=== PATIENT | female | born 2005 | race Two or more races ===

== ENCOUNTER 2025-05-04 09:20 | Outpatient (AMB) | payer MEDICAID, SELFPAY ==
[2025-05-04 09:38] VITALS: BP 118/72; PULSE 71; RESP 18; TEMP 36.8; O2SAT 98; BMI 35.2
--- NOTE | 2025-05-04 09:39 | OBCLNT_ITS ---
Vital Signs 05/04/25 09:38 05/04/25 09:43 Height 1.6 m Height Method Stated Weight 90.066 kg Weight Measurement Method Standing Scale BMI 35.2 BP 118/72 118/72 Blood Pressure Source Automatic Cuff Blood Pressure Location Right Upper Arm Position Sitting Respiration 18 18 Pulse 71 71 Pulse Source Monitor Temp 98.2 F 98.2 F Temp Source Temporal Artery Scan Pulse Oximetry (%) 98 98 Oxygen Delivery Method Room Air Allergies/Home Meds Allergies & Medications Allergies No Known Allergies Allergy (Verified 03/01/18 18:32) Intake Visit Data Collection New Patient or Established: Established Patient (seen at [facility] within 3 years) Reason for Visit:: OBI TRANSFER Do You Feel Safe at Home: Yes Authorities Contacted: N/A PCP or OBGYN visit in last 3 months: Yes Hx Now: Yes Are you currently on any form of Control: No Last menstrual period: 12/14/24 Pain Present Currently: No Smoking Status Smoking Status: Never smoker Questionnaires Social History Tobacco History Smoking Status: Never smoker Domestic Abuse History Do You Feel Safe at Home: Yes History of Present Illness HPI Narrative 19-year-old 2 para 0 SAB 1 for OBI. Patient is a transfer from [facility] with records. Her last period December 14, 2024. Her EDC September 19, 2025. She reports that she has her dates and she tracks them. Patient denies any pre- existing medical conditions. She denies allergies. She was diagnosed with chlamydia this . Both her and her partner were treated with Zithromax. They have not had a test of cure yet. Patient reports to drinking beer socially. Other than that no social habits. Denies any SAB complaints such as spotting or bleeding. No cramps. Both patient and partner are happy about the . OB Initial Visit OB Flowsheet OB Flowsheet Initial Weight: Not Recorded Date -?-?-?-?-?-?-?-?-?-?-?-?- EGA Weight BP Alb Glu CTX Pres Fundal ht FHR Mov Dilation Station Effacement Hx Notes Visit Note 05/04/25 -?-?-?-?-?-?-?-?-?-?-?-?- 20w 1d 90.066 kg 118/72 118/72 absent unknown 20 145 active 19-year-old 2 para 0 for OBI. Patient is a transfer from [facility] with records. She denies social habits, denies surgery. Denies chronic illness. Last period was December 14, 2024. Estimated due date September 19, 2025. Patient has sure dates, she tracks them. Denies any signs or symptoms of bleeding. And she was started on prenatals. Patient has a history of positive chlamydia with this and she reports that both her and her partner were treated at their visit on March 26. AFP,NIPT,SMA today, schedule with MFM for anatomy scan, Nuswab for + CT ARNEL, discuss safe sex, discuss ptl precaution, continue PNV. rtc 4 week Menstrual History Menstrual reliability: definite Flow: normal Menstrual regularity: regular Monthly: Yes On control pills at conception: No OB History : 1 Para: 0 Hx # Pregnancies: 0 Hx Total # of Abortions (Spontaneous & Elective): 0 Infection History & Risk Evaluation History of STDs: none Genetic Screening & History Genetic Screening/Teratology Counseling - Includes patient, baby's father, or anyone in either family with: 1. Patient's age 35 years or older as of estimated date of delivery: No 2. Thalassemia (Armenian, Luxembourgish, Mediterranean, or Background); MCV less than 80: No 3. Neural Tube Defect (Meningomyelocele, Spina Bifida, or Anencephaly): No 4. Congenital Heart Defect: No 5. Down Syndrome: No 6. Moo-Sachs (Ashkenazi Cheondoism, Cajun, Kyrgyz Martiniquais): No 7. Chapis Disease (Ashkenazi Cheondoism): No 8. Familial Dysautonomia (Ashkenazi Cheondoism): No 9. Sickle Cell Disease or Trait (): No 10. Hemophilia or other blood disorders: No 11. Muscular Dystrophy: No 12. Cystic Fibrosis: No 13. [place]'s Chorea: No 14. Mental Retardation/Autism: No 15. Other inherited genetic or chromosomal disorder: No 16. Maternal Metabolic Disorder (EG,TYPE 1 Diabetes, PKU): No 17. Patient or baby's father had a child with defects not listed above: No 18. Recurrent loss or a stillbirth: No 19. Medications (including supplements, vitamins, herbs or otc drugs)/illicit/recreational drugs/alcohol since last menstrual period: No 20. Any other: No Infection History 1. Live with someone with TB or exposed to TB: No 2. Rash or viral illness since last menstrual period: No 3. Hepatitis B,C: No Other (see comments) Source: [employer] Review of Systems Review of Systems Systems Reviewed: All systems reviewed, normal except as documented Exam General Limitations: no limitations General Appearance: alert, in no apparent distress, comfortable, cooperative, healthy appearing, well developed and well groomed Head Head exam: atraumatic, normocephalic and normal inspection Chest Chest inspection: Present normal inspection and symmetric chest wall rise Resp Respiratory exam: Present normal lung sounds bilaterally Card Cardiovascular exam: Present regular rate, normal rhythm and normal heart sounds Abdominal Abdominal exam: Present soft and normal bowel sounds Skin Skin exam: Present warm, dry, intact and normal color Office Procedures OBC Clinic LOC & Office Proc's Nursing/Assessment Miscellaneous Interventions: Pelvic Comp w/OB cult Assessment & Plan Diagnosis / Problem List (1) Encounter for supervision of high risk in second trimester, antepartum: Status: Acute (2) Chlamydia: Status: Acute Plan NuSwab plus for chlamydia test of cure. Scheduled for M ultrasound. NIPT, AFP and spinal muscular atrophy screens today. Continue prenatals. Discussed precautions. Increase fluids. Return in 4 weeks OB to Additional Plan Follow Up: 4 Weeks (obc)
[2025-05-04 09:43] VITALS: BP 118/72; PULSE 71; RESP 18; TEMP 36.8; O2SAT 98
== END 2025-05-04 10:04 | disposition home or self-care (01) ==
LOC: HODSOBC 09:20
PROVIDERS: Supervising Provider Advanced Practice Midwife; Visit Provider Advanced Practice Midwife
DX: O09.892 Supervision of other high risk pregnancies, second trimester (principal); O98.312 Other infections with a predominantly sexual mode of transmission complicating pregnancy, second trimester; A56.8 Sexually transmitted chlamydial infection of other sites; Z3A.20 20 weeks gestation of pregnancy
CPT/HCPCS: 99204; G0463

== ENCOUNTER 2025-06-10 08:39 | Outpatient (AMB) | payer MEDICAID, SELFPAY ==
[2025-06-10 08:45] VITALS: BP 109/72; PULSE 87; RESP 18; TEMP 36.6; O2SAT 97; BMI 36.5
--- NOTE | 2025-06-10 08:45 | OBCLNT_ITS ---
Vital Signs 06/10/25 08:45 Height 1.6 m Height Method Stated Weight 93.61 kg Weight Measurement Method Standing Scale BMI 36.5 BP 109/72 Blood Pressure Source Automatic Cuff Blood Pressure Location Right Upper Arm Position Sitting Respiration 18 Pulse 87 Pulse Source Monitor Temp 97.8 F Temp Source Temporal Artery Scan Pulse Oximetry (%) 97 Oxygen Delivery Method Room Air Allergies/Home Meds Allergies & Medications Allergies No Known Allergies Allergy (Verified 06/10/25 08:47) Intake Visit Data Collection New Patient or Established: Established Patient (seen at [facility] within 3 years) Reason for Visit:: OBC Seen by Clinical Staff ONLY (RN/MA): No Barrelhead Inspector Required: No Do You Feel Safe at Home: Yes Authorities Contacted: N/A PCP or OBGYN visit in last 3 months: Yes Date of Last PCP or OBGYN visit: 05/04/25 Hx Now: Yes Are you currently on any form of Control: No Pain Present Currently: No Pain Scale Used: Abraham-Bell/Numerical Pain scale:: 0 Smoking Status Smoking Status: Never smoker Immunizations Flu Vaccine in the Last 12 Months: No Flu Vaccine Exclusion Criteria: No Exclusion Criteria Questionnaires Covid-19 Vaccine Questionnaire Has patient been vacinated for Covid-19 Have you been vacinated for Covid-19: No PHQ-9 PHQ-2 Over the last 2 weeks, how often have you been bothered by any of the following problems? 1. Little interest or pleasure in doing things: not at all 2. Feeling down, depressed, or hopeless: not at all Total score: 0 PHQ-9 3. Trouble falling or staying asleep, or sleeping too much: Not at all 4. Feeling tired or having little energy: Not at all 5. Poor appetite or overeating: Not at all 6. Feeling bad about yourself - or that you are a failure or have let yourself or your family down: Not at all 7. Trouble concentrating on things, such as reading the newspaper or watching television: Not at all 8. Moving or speaking so slowly that other people could have noticed? - Or the opposite - being so fidgety or restless that you have been moving around a lot more than usual: not at all 9. Thoughts that you would be better off or of hurting yourself in some way: Not at all Total score: 0 If you checked off any problems, how difficult have these problems made it for you to do your work, take care of things at home, or get along with other people?: not difficult at all Source: Developed by Drs. Mehrdad Dockery, Krupa Saez, Jose Holloway and colleagues, with an educational abundio from [employer]. Depression screen completed yes Social History Living Situation History Marital Status: Single Lives With: Family Housing: House Tobacco History Smoking Status: Never smoker Second Hand Smoke Exposure: Yes Alcohol History Alcohol Intake: Never Domestic Abuse History Do You Feel Safe at Home: Yes Care OB Visit Log OB Flowsheet Initial Weight: Not Recorded Date -?-?-?-?-?-?-?-?-?-?-?-?- EGA Weight BP Alb Glu CTX Pres Fundal ht FHR Mov Dilation Station Effacement Hx Notes Visit Note 05/04/25 -?-?-?-?-?-?-?-?-?-?-?-?- 20w 1d 90.066 kg 118/72 118/72 absent unknown 20 145 active 19-year-old 2 para 0 for OBI. Patient is a transfer from [facility] with records. She denies social habits, denies surgery. Denies chronic illness. Last period was December 14, 2024. Estimated due date September 19, 2025. Patient has sure dates, she tracks them. Denies any signs or symptoms of bleeding. And she was started on prenatals. Patient has a history of positive chlamydia with this and she reports that both her and her partner were treated at their visit on March 26. AFP,NIPT,SMA today, schedule with MFM for anatomy scan, Nuswab for + CT ARNEL, discuss safe sex, discuss ptl precaution, continue PNV. rtc 4 week 06/10/25 -?-?-?-?-?-?-?-?-?-?-?-?- 25w 3d 93.61 kg 109/72 absent unknown 25 145 active No OB complaints. Reports movement. Denies leaking, bleeding, contractions. Patient would like a note for work because at [employer] she is being asked to use equipment that is not to be used by women. And that is per her company policy Note for work. Avoid being placed in operational PIP. Third trimester labs. Reschedule anatomy scan at at [facility]. And increase fluids continue prenatals discussed diet and weight and return in 4 weeks at which GERI Calculator Estimated Delivery Date Method Current WG Current Estimate 09/20/25 LMP (Certain) 25w 3d Notes Visit Date: 05/04/25 Last Updated by: Ayse Pierre CNM 03/26 ob panel: CT+/GC-, HBSAG-,HC-,HIV-, RPR::NR, rub imm, UT-, UA-, O+,ABS-, Office Procedures OBC Clinic LOC & Office Proc's Nursing/Assessment Patient Status: Established Patient OB Clinic Nursing Assessment: Medication Reconciliation, Update PMH in EMR and Vital Signs OB Clinic Coordination of Care: Complex Care and Chronic Disease 1-5, Education Complex Pt/Fam, Consent,records obtained, informed consent, Results/Orders obtained and Staff clarify orders Special Needs: Heart tones Established Patient Charge Established Patient Point Assignment: 125 Established Patient Point Charge: EP Level 4 (120-155) Assessment & Plan Diagnosis / Problem List (1) Encounter for supervision of high risk in second trimester, antepartum: Status: Acute Plan Note for work related machine use. Patient is to avoid being scheduled in the operational.. Schedule anatomy scan at [facility]. Third trimester labs with A1c today. Discussed labor precautions. I discussed diet and weight gain. Return in 4 weeks OB check Additional Plan Follow Up: 4 Weeks (obc)
== END 2025-06-10 09:54 | disposition home or self-care (01) ==
PROVIDERS: Supervising Provider Advanced Practice Midwife; Visit Provider Advanced Practice Midwife
DX: O09.92 Supervision of high risk pregnancy, unspecified, second trimester (principal); Z3A.25 25 weeks gestation of pregnancy
CPT/HCPCS: 99214; G0463

== ENCOUNTER 2025-07-07 09:12 | Outpatient (AMB) | payer MEDICAID, SELFPAY ==
[2025-07-07 09:40] VITALS: BP 121/77; PULSE 75; RESP 18; TEMP 36.5; O2SAT 97; BMI 37.2
--- NOTE | 2025-07-07 09:40 | OBCLNT_ITS ---
Vital Signs 07/07/25 09:40 Height 1.6 m Height Method Stated Weight 95.254 kg Weight Measurement Method Standing Scale BMI 37.2 BP 121/77 Blood Pressure Source Automatic Cuff Blood Pressure Location Right Upper Arm Position Standing Respiration 18 Pulse 75 Pulse Source Monitor Temp 97.7 F Temp Source Temporal Artery Scan Pulse Oximetry (%) 97 Oxygen Delivery Method Room Air Allergies/Home Meds Allergies & Medications Allergies No Known Allergies Allergy (Verified 07/07/25 09:42) Medication Reconciliation No Known Home Medications 07/07/25 [History Confirmed 07/07/25] Immunizations Immunizations Flu Vaccine in the Last 12 Months: No Flu Vaccine Exclusion Criteria: No Exclusion Criteria Care OB Visit Log OB Flowsheet Initial Weight: Not Recorded Date -?-?-?-?-?-?-?-?-?-?-?-?- EGA Weight BP Alb Glu CTX Pres Fundal ht FHR Mov Dilation Station Effacement Hx Notes Visit Note 05/04/25 -?-?-?-?-?-?-?-?-?-?-?-?- 22w 1d 90.066 kg 118/72 118/72 absent unknown 20 145 active 19-year-old 2 para 0 for OBI. Patient is a transfer from [facility] with records. She denies social habits, denies surgery. Denies chronic illness. Last period was December 14, 2024. Estimated due date September 19, 2025. Patient has sure dates, she tracks them. Denies any signs or symptoms of bleeding. And she was started on prenatals. Patient has a history of positive chlamydia with this and she reports that both her and her partner were treated at their visit on March 26. AFP,NIPT,SMA today, schedule with MFM for anatomy scan, Nuswab for + CT ARNEL, discuss safe sex, discuss ptl precaution, continue PNV. rtc 4 week 06/10/25 -?-?-?-?-?-?-?-?-?-?-?-?- 27w 3d 93.61 kg 109/72 absent unknown 25 145 active No OB complaints. Reports movement. Denies leaking, bleeding, contractions. Patient would like a note for work because at [employer] she is being asked to use equipment that is not to be used by women. And that is per her company policy Note for work. Avoid being placed in operational PIP. Third trimester labs. Reschedule anatomy scan at at [facility]. And increase fluids continue prenatals discussed diet and weight and return in 4 weeks at which 07/07/25 -?-?-?-?-?-?-?-?-?-?-?-?- 31w 2d 95.254 kg 121/77 absent cephalic 31 145 active Patient would like to start disability. 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 Denies leaking, bleeding, contractions. Reports good movement. Patient did not do third trimester labs. And she has a follow-up ultrasound with maternal- medicine September 06. Follow-up with [facility]- [facility] September 06. Start disability today. Discussed labor precautions. Third trimester labs today with GC and chlamydia as test of cure failure. Discussed safe sex. labor precautions increase fluids. Return 2 weeks OB GERI Calculator Estimated Delivery Date Method Current WG Current Estimate 09/06/25 Ultrasound #1 31w 2d Other Estimates 09/20/25 LMP (Certain) 29w 2d Notes Visit Date: 07/07/25 Last Updated by: Ayse Pierre CNM sono 06/10: IUP 27w3. EDC: 09/06/25. poor dates Visit Date: 05/04/25 Last Updated by: Ayse Pierre CNM 03/26 ob panel: CT+/GC-, HBSAG-,HC-,HIV-, RPR::NR, rub imm, UT-, UA-, O+,ABS-, / Office Procedures OBC Clinic LOC & Office Proc's Nursing/Assessment Patient Status: Established Patient OB Clinic Nursing Assessment: Medication Reconciliation, Update PMH in EMR and Vital Signs OB Clinic Coordination of Care: Complex Care and Chronic Disease 1-5, Education Complex Pt/Fam, Consent,records obtained, informed consent, Education Simp Pt/Fam, Lab and Imaging orders, Results/Orders obtained and Staff clarify orders Special Needs: Heart tones Established Patient Charge Established Patient Point Assignment: 155 Established Patient Point Charge: EP Level 4 (120-155) Assessment & Plan Diagnosis / Problem List (1) Encounter for supervision of high risk in second trimester, antepartum: Status: Acute Plan Wrong dates. Patient has follow-up maternal- medicine ultrasound September 06. Discussed labor precautions. Third trimester labs with A1c and GC and chlamydia. Discussed safe sex. labor precautions reviewed. Start disability today. Return in 2 weeks OB check Additional Plan Follow Up: 2 Weeks (obc)
== END 2025-07-07 10:13 | disposition home or self-care (01) ==
LOC: HODSOBC 09:12
PROVIDERS: Supervising Provider Advanced Practice Midwife; Visit Provider Advanced Practice Midwife
DX: O09.893 Supervision of other high risk pregnancies, third trimester (principal); O26.843 Uterine size-date discrepancy, third trimester; Z3A.31 31 weeks gestation of pregnancy
CPT/HCPCS: 99214; G0463

== ENCOUNTER 2025-07-21 10:57 | Outpatient (AMB) | payer MEDICAID, SELFPAY ==
[2025-07-21 11:21] VITALS: BP 127/84; PULSE 92; RESP 18; TEMP 36.5; O2SAT 98; BMI 37.4
--- NOTE | 2025-07-21 11:21 | OBCLNT_ITS ---
Vital Signs 07/21/25 11:21 Height 1.6 m Height Method Stated Weight 95.765 kg Weight Measurement Method Standing Scale BMI 37.4 BP 127/84 Blood Pressure Source Automatic Cuff Blood Pressure Location Left Upper Arm Position Sitting Respiration 18 Pulse 92 Pulse Source Monitor Temp 97.7 F Temp Source Oral Pulse Oximetry (%) 98 Oxygen Delivery Method Room Air Allergies/Home Meds Allergies & Medications Allergies No Known Allergies Allergy (Verified 07/21/25 11:22) Medication Reconciliation ferrous sulfate 325 mg (65 mg iron) tablet 325 mg PO BID #60 tabs 07/21/25 [Rx] vitamins-iron fumarate 66 mg iron-folic acid 1 mg tablet tab PO 07/21/25 [History Confirmed 07/21/25] Immunizations Immunizations Flu Vaccine in the Last 12 Months: No Flu Vaccine Exclusion Criteria: Refused by Patient Care OB Visit Log OB Flowsheet Initial Weight: Not Recorded Date -?-?-?-?-?-?-?-?-?-?-?-?- EGA Weight BP Alb Glu CTX Pres Fundal ht FHR Mov Dilation Station Effacement Hx Notes Visit Note 05/04/25 -?-?-?-?-?-?-?-?-?-?-?-?- 22w 1d 90.066 kg 118/72 118/72 absent unknown 20 145 active 19-year-old 2 para 0 for OBI. Patient is a transfer from [facility] with records. She denies social habits, denies surgery. Denies chronic illness. Last period was December 14, 2024. Estimated due date September 19, 2025. Patient has sure dates, she tracks them. Denies any signs or symptoms of bleeding. And she was started on prenatals. Patient has a history of positive chlamydia with this and she reports that both her and her partner were treated at their visit on March 26. AFP,NIPT,SMA today, schedule with MFM for anatomy scan, Nuswab for + CT ARNEL, discuss safe sex, discuss ptl precaution, continue PNV. rtc 4 week 06/10/25 -?-?-?-?-?-?-?-?-?-?-?-?- 27w 3d 93.61 kg 109/72 absent unknown 25 145 active No OB complaints. Reports movement. Denies leaking, bleeding, contractions. Patient would like a note for work because at [employer] she is being asked to use equipment that is not to be used by women. And that is per her company policy Note for work. Avoid being placed in operational PIP. Third trimester labs. Reschedule anatomy scan at at [facility]. And increase fluids continue prenatals discussed diet and weight and return in 4 weeks at which 07/07/25 -?-?-?-?-?-?-?-?-?-?-?-?- 31w 2d 95.254 kg 121/77 absent cephalic 31 145 active Patient would like to start disability. 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 Denies leaking, bleeding, contractions. Reports good movement. Patient did not do third trimester labs. And she has a follow-up ultrasound with maternal- medicine September 06. [facility] Start disability today. Discussed labor precautions. Third trimester labs today with GC and chlamydia as test of cure failure. Discussed safe sex. labor precautions increase fluids. Return 2 weeks OB 07/21/25 -?-?-?-?-?-?-?-?-?-?-?-?- 33w 2d 95.765 kg 127/84 absent cephalic 33 140 active Maternal- medicine scheduled for August 17. Reports good movement. Denies leaking, bleeding, contractions Keep [facility] appointment. Discussed labor precautions. Kick count twice a day. Return in 2 weeks OB check. Discussed weight gain and increased exercise GERI Calculator Estimated Delivery Date Method Current WG Current Estimate 09/06/25 Ultrasound #1 33w 2d Other Estimates 09/20/25 LMP (Certain) 31w 2d Notes Visit Date: 07/21/25 Last Updated by: Ayse Pierre CNM 3rd tri lab: . RPR::NR, A1:5.4, 1hr gtt: 93 Visit Date: 07/07/25 Last Updated by: Ayse Pierre CNM sono 06/10: IUP 27w3. EDC: 09/06/25. poor dates Visit Date: 05/04/25 Last Updated by: Ayse Pierre CNM 03/26 ob panel: CT+/GC-, HBSAG-,HC-,HIV-, RPR::NR, rub imm, UT-, UA-, O+,ABS-, Office Procedures OBC Clinic LOC & Office Proc's Nursing/Assessment Patient Status: Established Patient OB Clinic Nursing Assessment: Medication Reconciliation, Update PMH in EMR and Vital Signs OB Clinic Coordination of Care: Complex Care and Chronic Disease 1-5, Consent,records obtained, informed consent, Education Simp Pt/Fam, 1 Ins Authorization, Lab and Imaging orders, Results/Orders obtained and Staff clarify orders Special Needs: Heart tones Established Patient Charge Established Patient Point Assignment: 150 Established Patient Point Charge: EP Level 4 (120-155) Assessment & Plan Diagnosis / Problem List (1) Encounter for supervision of high risk in third trimester, antepartum: Status: Acute Plan Discussed labor precautions. Kick count twice a day reviewed. Follow- up [facility] August 17. Discussed third trimester labs. Return in 2 weeks OB check, GBS nv Additional Plan Follow Up: 2 Weeks (obc)
== END 2025-07-21 11:33 | disposition home or self-care (01) ==
LOC: HODSOBC 10:57
PROVIDERS: Supervising Provider Advanced Practice Midwife; Visit Provider Advanced Practice Midwife
DX: O09.93 Supervision of high risk pregnancy, unspecified, third trimester (principal); Z3A.33 33 weeks gestation of pregnancy; Z28.21 Immunization not carried out because of patient refusal
CPT/HCPCS: 99214; G0463

== ENCOUNTER 2025-07-29 17:20 | Observation (INO) | payer MEDICAID, SELFPAY ==
[2025-07-29] VITALS (13 sets, daily range): BP systolic 124–128; BP diastolic 69–76; PULSE 85–123; RESP 18–99; TEMP 36.7; O2SAT 97–100; BMI 38.0
--- NOTE | 2025-07-29 18:00 | XR_ITS ---
Examination: Complete OB ultrasound greater than 14 weeks Date and time of exam: July 29, 2025, 1843 hours INDICATIONS: Patient states loss of mucous plug today Findings: Viable intrauterine single fetus with single amniotic sac presentation cephalic Cardiac motion 143 bpm Placenta fundal grade 2 Umbilical cord insertion 3 vessel seen Amniotic fluid index 8.4 cm spine maternal left Cervix 3.2 cm Ovaries obscured by bowel gas. Composite estimated gestational age based on BPD, head circumference, abdominal circumference, femur length is 34 weeks 0 days Estimated weight 2339 g. Survey of intracranial anatomy, spinal anatomy, abdominal anatomy, four-chamber heart performed with no abnormalities identified. Impression: Viable intrauterine gestation cephalic presentation presentation cephalic Estimated gestational age 34 weeks 0 days.
== END 2025-07-29 19:55 | disposition home or self-care (01) ==
PROVIDERS: Admitting Provider Obstetrics & Gynecology; Visit Provider Obstetrics & Gynecology
DX: Z34.03 Encounter for supervision of normal first pregnancy, third trimester (principal); Z3A.34 34 weeks gestation of pregnancy
CPT/HCPCS: 59025; 59899; 76805

== ENCOUNTER 2025-08-11 08:13 | Outpatient (AMB) | payer MEDICAID, SELFPAY ==
[2025-08-11 08:32] VITALS: BP 133/79; PULSE 99; RESP 17; TEMP 36.6; O2SAT 98; BMI 37.8
--- NOTE | 2025-08-11 08:32 | OBCLNT_ITS ---
Vital Signs 08/11/25 08:32 Height 1.6 m Height Method Stated Weight 96.842 kg Weight Measurement Method Standing Scale BMI 37.8 BP 133/79 H Blood Pressure Source Automatic Cuff Blood Pressure Location Right Upper Arm Position Sitting Respiration 17 Pulse 99 Pulse Source Monitor Temp 97.9 F Temp Source Temporal Artery Scan Pulse Oximetry (%) 98 Oxygen Delivery Method Room Air Allergies/Home Meds Allergies & Medications Allergies No Known Allergies Allergy (Verified 08/11/25 08:38) Medication Reconciliation vitamins-iron fumarate 66 mg iron-folic acid 1 mg tablet tab PO 06/05 [History Confirmed 08/11/25] Immunizations Immunizations Flu Vaccine in the Last 12 Months: No Flu Vaccine Exclusion Criteria: Refused by Patient Care OB Visit Log OB Flowsheet Initial Weight: Not Recorded Date -?-?-?-?-?-?-?-?-?-?-?-?- EGA Weight BP Alb Glu CTX Pres Fundal ht FHR Mov Dilation Station Effacement Hx Notes Visit Note 05/04/25 -?-?-?-?-?-?-?-?-?-?-?-?- 22w 1d 90.066 kg 118/72 118/72 absent unknown 20 145 active 19-year-old 2 para 0 for OBI. Patient is a transfer from [facility] with records. She denies social habits, denies surgery. Denies chronic illness. Last period was December 14, 2024. Estimated due date September 19, 2025. Patient has sure dates, she tracks them. Denies any signs or symptoms of bleeding. And she was started on prenatals. Patient has a history of positive chlamydia with this and she reports that both her and her partner were treated at their visit on March 26. AFP,NIPT,SMA today, schedule with MFM for anatomy scan, Nuswab for + CT ARNEL, discuss safe sex, discuss ptl precaution, continue PNV. rtc 4 week 06/10/25 -?-?-?-?-?-?-?-?-?-?-?-?- 27w 3d 93.61 kg 109/72 absent unknown 25 145 active No OB complaints. Reports movement. Denies leaking, bleeding, contractions. Patient would like a note for work because at [facility] she is being asked to use equipment that is not to be used by women. And that is per her company policy Note for work. Avoid being placed in operational PIP. Third trimester labs. Reschedule anatomy scan at at [facility]. And increase fluids continue prenatals discussed diet and weight and return in 4 weeks at which 07/07/25 -?-?-?-?-?-?-?-?-?-?-?-?- 31w 2d 95.254 kg 121/77 absent cephalic 31 145 active Patient would like to start disability. She stopped working June 11. 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 So disability will start today July 07, 2025. Denies leaking, bleeding, contractions. Reports good movement. Patient did not do third trimester labs. And she has a follow-up ultrasound with maternal- medicine September 06. [facility]. Start disability today. Discussed labor precautions. Third trimester labs today with GC and chlamydia as test of cure failure. Discussed safe sex. labor precautions increase fluids. Return 2 weeks OB 07/21/25 -?-?-?-?-?-?-?-?-?-?-?-?- 33w 2d 95.765 kg 127/84 absent cephalic 33 140 active Maternal- medicine scheduled for August 17. Reports good movement. Denies leaking, bleeding, contractions Keep mate rnal- medicine appointment. Discussed labor precautions. Kick count twice a day. Return in 2 weeks OB check. Discussed weight gain and increased exercise 08/11/25 -?-?-?-?-?-?-?-?-?-?-?-?- 36w 2d 96.842 kg 133/79 absent cephalic 36 145 active Denies PIH complaints. Denies leaking, bleeding. Reports good movement. No OB complaints Denies PIH complaints. Raymond es leaking, bleeding. Reports good movement. No OB complaints, urine protein- GBS today. Discussed kick count twice a day. Discussed diet and weight gain. We reviewed PIH signs and symptoms and precautions. Return in a week OB check GERI Calculator Estimated Delivery Date Method Current WG Current Estimate 09/06/25 Ultrasound #1 36w 2d Other Estimates 09/20/25 LMP (Certain) 34w 2d 09/11/25 Ultrasound #2 35w 4d 09/06/25 Manual 36w 2d final geri , EFW 42% Notes Visit Date: 07/21/25 Last Updated by: Ayse Pierre CNM 3rd tri lab: . RPR::NR, A1:5.4, 1hr gtt: 93 Visit Date: 07/07/25 Last Updated by: Ayse Pierre CNM sono 06/10: IUP 27w3. EDC: 09/06/25. poor dates Visit Date: 05/04/25 Last Updated by: Ayse Pierre CNM 03/26 ob panel: CT+/GC-, HBSAG-,HC-,HIV-, RPR::NR, rub imm, UT-, UA-, O+,ABS-, Office Procedures OBC Clinic LOC & Office Proc's Nursing/Assessment Patient Status: Established Patient OB Clinic Nursing Assessment: Medication Reconciliation, Update PMH in EMR and Vital Signs OB Clinic Coordination of Care: Complex Care and Chronic Disease 1-5, Education Complex Pt/Fam, Consent,records obtained, informed consent, 1 Ins Authorization, Lab and Imaging orders, Results/Orders obtained and Staff clarify orders Special Needs: Heart tones Miscellaneous Interventions: Blood/Urine Collection and Culture Specimen Collection Established Patient Charge Established Patient Point Assignment: 200 Established Patient Point Charge: EP Level 5 (160-above) Assessment & Plan Diagnosis / Problem List (1) Encounter for supervision of high risk in third trimester, ante : Status: Acute Plan GBS today. Discussed labor precautions. Kick count twice a day. Reviewed danger signs symptoms and signs and symptoms of preeclampsia. Lots of fluids continue prenatals discussed diet and weight return week OB check Additional Plan Follow Up: 1 Week (obc)
== END 2025-08-11 09:00 | disposition home or self-care (01) ==
LOC: HODSOBC 08:13
PROVIDERS: Supervising Provider Advanced Practice Midwife; Visit Provider Advanced Practice Midwife
DX: O09.93 Supervision of high risk pregnancy, unspecified, third trimester (principal); Z3A.36 36 weeks gestation of pregnancy; Z36.85 Encounter for antenatal screening for Streptococcus B; Z28.21 Immunization not carried out because of patient refusal
CPT/HCPCS: 99214; 99215; G0463